=== PATIENT | female | born 1990 | race Caucasian/White ===

== ENCOUNTER 2016-12-04 02:38 | Emergency (ER) | payer OTHER ==
[~2016-12-04] VITALS: Ht 165.1 cm; Wt 68.0 kg
[2016-12-04 02:50] VITALS: BP 158/104
--- NOTE | 2016-12-04 02:58 | NUR ---
PT TAKEN TO BED 3
--- NOTE | 2016-12-04 03:12 | NUR ---
PATIENT PRESENTS TO ED WITH C.O. CHEST DISCOMFORT THAT RADIATES TO LEFT ARM WITH TINGLING SENSATION, ALSO C.O. NAUSEA AND HEADACHE, STARTED TODAY .DENIES N/V/D AT THIS TIME.; SKIN IS PINK/WARM/DRY; AAOX4 WITH EVEN AND STEADY GAIT; LUNGS CLEAR BL; HR EVEN AND REGULAR; PT DENIES ANY FEVER, CP, SOB, OR COUGH AT THIS TIME; PATIENT STATES PAIN OF 2/10 AT THIS TIME; VSS; PATIENT POSITIONED FOR COMFORT; HOB ELEVATED; BEDRAILS UP X2; BED DOWN. ER MD MADE AWARE OF PT STATUS.
--- NOTE | 2016-12-04 03:23 | NUR ---
Dr. Kumari evaluating patient at bedside.
--- NOTE | 2016-12-04 03:26 | NUR ---
ER PHYSICIAN DR KABA AT PT BEDSIDE.
[2016-12-04] MEDS ORDERED: ASPIRIN 81 MG TAB.CHEW PO ONE (03:45)
[2016-12-04] MEDS ORDERED: ONDANSETRON 4 MG ODT PO ONE (03:45)
[2016-12-04] MEDS ORDERED: ENALAPRIL 5 MG TAB PO ONE (03:55)
--- NOTE | 2016-12-04 04:04 | NUR ---
X-Ray at bedside.
[2016-12-04 04:45] VITALS: BP 119/76
== END 2016-12-04 04:45 | disposition home or self-care (01) ==
LOC: MED 02:38
DX: R07.89 Other chest pain (principal); R11.0 Nausea; R03.0 Elevated blood-pressure reading, without diagnosis of hypertension
CPT/HCPCS: 36415; 71010; 80053; 81002; 81025; 84484; 85025; 85610; 85730; 93005; 99285; Q0092; S0119

== ENCOUNTER 2019-09-18 12:13 | Emergency (ER) | payer OTHER ==
[~2019-09-18] VITALS: Ht 167.6 cm; Wt 59.0 kg
[2019-09-18 12:14] VITALS: BP 124/53
--- NOTE | 2019-09-18 12:26 | NUR ---
Patient ambulated to bed 2. RN evaluating patient at bedside.
--- NOTE | 2019-09-18 12:37 | NUR ---
PT TO ED REFFERED FROM URGENT CARE FOR +HCG AND VAGINAL BLEEDING X 2 WEEKS. PT REPORTS BLEEDING CONTROLLED AND DESCRIBES SPOTTING. ALSO REPORTING CRAMPING TO PUBIC AREA. NO OBVIOUS DISTENTION NOTED. IN BED FOR MD LOUIS.
--- NOTE | 2019-09-18 12:45 | NUR ---
PROGRAM PROFESSIONAL AT BEDSIDE
--- NOTE | 2019-09-18 13:06 | NUR ---
REPORT GIVEN TO JEANNIE AMBROSIO/JOSEPH AMBROSIO. TRANSFER OF CARE AT THIS TIME.
[2019-09-18 13:08] LABS: BASOPHILS % (AUTO) 0.2 % (0.0-2.0); EOSINOPHILS # (AUTO) 0.1 K/uL (0-0.4); EOSINOPHILS % (AUTO) 0.7 % (0.0-4.0); LYMPHOCYTES # (AUTO) 1.4 K/uL (2.5-16.5); LYMPHOCYTES % (AUTO) 12.2 % (20.5-51.1); MEAN CORPUSCULAR HEMOGLOBIN 30 pg (27-31); MEAN CORPUSCULAR HGB CONC 33 g/dL (33-37); MONOCYTES # (AUTO) 0.6 K/uL (0.8-1.0); MONOCYTES % (AUTO) 4.9 % (1.7-9.3); NEUTROPHILS # (AUTO) 9.3 K/uL (1.8-7.7); PLATELET COUNT (AUTO) 304 K/uL (140-450); RED BLOOD CELL COUNT(AUTO) 4.28 MIL/uL (4.20-5.40); WHITE BLOOD COUNT (AUTO) 11.4 K/uL (4.8-10.8)
[2019-09-18 13:08] LABS: APPEARANCE,URINE BLOODY (CLEAR); BILIRUBIN,URINE 1+ (NEGATIVE); BLOOD, URINE 3+ (NEGATIVE); COLOR,URINE RED (YELLOW); LEUKOCYTE ESTERASE ,URINE TRACE (NEGATIVE); NITRITE, URINE POSITIVE (NEGATIVE); PH,URINE 5.5 (5.0-9.0); UGLUCOSE NEGATIVE (NEGATIVE)
[2019-09-18 13:14] LABS: RBC,URINE 50-80 /HPF (0-5)
[2019-09-18 13:21] LABS: ANION GAP 13.2 (8-16); CARBON DIOXIDE 26.6 mmol/L (21-32); CREATININE 0.6 mg/dL (0.6-1.3); POTASSIUM 3.8 mmol/L (3.5-5.1)
--- NOTE | 2019-09-18 13:42 | NUR ---
DR. LUNA EVALUATING PT AT BEDSIDE.
[2019-09-18 14:02] VITALS: BP 116/74
== END 2019-09-18 14:02 | disposition home or self-care (01) ==
LOC: MED 12:13
DX: O23.40 Unspecified infection of urinary tract in pregnancy, unspecified trimester (principal); O20.8 Other hemorrhage in early pregnancy
CPT/HCPCS: 36415; 76801; 80048; 81001; 84702; 85025; 86900; 86901; 87086; 99284